=== PATIENT | female | born 1980 | race Caucasian/White ===

== ENCOUNTER 2017-04-28 05:50 | Emergency (ER) | payer OTHER ==
[~2017-04-28] VITALS: Ht 167.6 cm; Wt 86.2 kg
[~2017-04-28 05:50] MED LIST: ALPR1TAB2 PO; IBUP800T99 PO; [UNRECOGNIZED DRUG - CODE] PO; [UNRECOGNIZED DRUG - CODE] PO
[2017-04-28 05:53] VITALS: BP 122/87
--- NOTE | 2017-04-28 06:00 | NUR ---
TO ER BED 5
--- NOTE | 2017-04-28 06:06 | NUR ---
36Y F PRESENT TO ER C/O OF NECK AND BACK PAIN X3 DAYS. PT DENIES ANY INJURY. PAIN IS 8/10 IN SCALE.
--- NOTE | 2017-04-28 07:05 | NUR ---
PT APPEARS TO BE RESTING COMFORTABLY IN BED; RR EVEN/UNLABORED; NO ACUTE DISTRESS NOTED AT THIS TIME; WILL CONTINUE TO MONITOR.
--- NOTE | 2017-04-28 07:35 | NUR ---
Dr. Del Real evaluating patient at bedside.
[2017-04-28] MEDS ORDERED: KETOROLAC 60 MG/2 ML VIAL IM ONE (07:50)
[2017-04-28] MEDS ORDERED: DIAZEPAM PFS 10 MG/2 ML SYR IM ONE (07:50)
--- NOTE | 2017-04-28 08:01 | NUR ---
WARM BLANKET PROVIDED TO PT FOR COMFORT.
--- NOTE | 2017-04-28 08:21 | NUR ---
PT STATES " I FEEL BETTER" AFTER ADMINISTRATION OF PAIN MEDICATION ORDERED BY PER MD DR. YU; PT STATES PAIN /10 FROM 09/06 AT THIS TIME; ASKED PT IF PT WOULD LIKE MORE PAIN MEDICATION, STATES " I'M FINE. I WILL JUST TAKE THE MEDICATION HE IS GOING TO PRESCRIBE TO ME"; PT DENIES NEED FOR ADDITIONAL PAIN MEDICATION AT THIS TIME. ER MD DR. YU NOTIFIED. NO ACUTE DISTRESS NOTED AT THIS TIME. WILL CONTINUE TO MONITOR.
[2017-04-28 08:29] VITALS: BP 121/84
--- NOTE | 2017-04-28 08:29 | NUR ---
Patient discharged with v/s stable. Written and verbal after care instructions given and explained. Patient alert, oriented and verbalized understanding of instructions. Ambulatory with to car. All questions addressed prior to discharge. ID band removed. Patient advised to follow up with PMD. Rx of NORCO 5MG-325MG TAB, MOTRIN 800M TAB & VALIUM 5MG TAB given. Patient educated on indication of medication including possible reaction and side effects. Opportunity to ask questions provided and answered.
== END 2017-04-28 08:29 | disposition home or self-care (01) ==
LOC: MED 05:50
DX: M54.9 Dorsalgia, unspecified (principal); F41.9 Anxiety disorder, unspecified; Z90.89 Acquired absence of other organs
CPT/HCPCS: 81002; 81025; 96372; 99284; J1885; J3360

== ENCOUNTER 2017-07-29 06:46 | Emergency (ER) | payer OTHER ==
[~2017-07-29] VITALS: Ht 167.6 cm; Wt 91.6 kg
[2017-07-29 06:51] VITALS: BP 110/77
--- NOTE | 2017-07-29 07:56 | NUR ---
36 Y/O F W/C/O ABD VAGINAL BLEEDING X TODAY. MED HX MIGRAINE HEADACHES, AND DM TYPE 2, DOESNT RECALL NAME OF MEDS. DENIES N/V/D; SKIN IS PINK/WARM/DRY; AAOX4 WITH EVEN AND STEADY GAIT; LUNGS CLEAR BL; HR EVEN AND REGULAR; PT DENIES ANY FEVER, CP, SOB, OR COUGH AT THIS TIME; PATIENT STATES PAIN OF 7/10 AT THIS TIME; VSS; PATIENT POSITIONED FOR COMFORT; HOB ELEVATED; BEDRAILS UP X2; BED DOWN. ER MADE AWARE OF PT STATUS. Addendum: 07/29/17 at 0917 by [email or web address] PT TS DON'T WANT PAIN MED AT THIS TIME
--- NOTE | 2017-07-29 08:00 | NUR ---
Patient being evaluated by DR MATTA at bedside.
[2017-07-29 08:25] LABS: BASOPHILS # (AUTO) 0.3 K/uL (0.00-0.22); BASOPHILS % (AUTO) 4.4 % (0.0-2.0); EOSINOPHILS # (AUTO) 0.2 K/uL (0-0.4); EOSINOPHILS % (AUTO) 2.6 % (0.0-4.0); HEMATOCRIT 39.3 % (36-48); HEMOGLOBIN 12.7 g/dL (12.0-16.0); LYMPHOCYTES # (AUTO) 1.9 K/uL (2.5-16.5); LYMPHOCYTES % (AUTO) 31.2 % (20.5-51.1); MEAN CORPUSCULAR HEMOGLOBIN 25 pg (27-31); MEAN CORPUSCULAR HGB CONC 32 g/dL (33-37); MEAN CORPUSCULAR VOLUME 76 fL (80-94); MONOCYTES # (AUTO) 0.4 K/uL (0.8-1.0); MONOCYTES % (AUTO) 6.9 % (1.7-9.3); NEUTROPHILS # (AUTO) 3.3 K/uL (1.8-7.7); NEUTROPHILS % (AUTO) 54.9 % (42.2-75.2); PLATELET COUNT (AUTO) 267 K/uL (140-450); RED BLOOD CELL COUNT(AUTO) 5.15 MIL/uL (4.20-5.40); RED CELL DISTRIBUTION WIDTH 14.1 % (11.6-13.7); WHITE BLOOD COUNT (AUTO) 6.1 K/uL (4.8-10.8)
[2017-07-29 09:04] VITALS: BP 110/77
--- NOTE | 2017-07-29 09:14 | NUR ---
Patient discharged with v/s stable. Written and verbal after care instructions given and explained. Patient alert, oriented and verbalized understanding of instructions. Ambulatory with steady gait. All questions addressed prior to discharge. ID band removed. Patient advised to follow up with PMD. Rx of PROVECA given. Patient educated on indication of medication including possible reaction and side effects. Opportunity to ask questions provided and answered.
== END 2017-07-29 09:14 | disposition home or self-care (01) ==
LOC: MED 06:46
DX: N93.8 Other specified abnormal uterine and vaginal bleeding (principal); R73.03 Prediabetes
CPT/HCPCS: 36415; 81002; 81025; 82948; 85025; 99283

== ENCOUNTER 2018-03-27 19:22 | Emergency (ER) | payer OTHER ==
[~2018-03-27] VITALS: Ht 167.6 cm; Wt 86.2 kg
[~2018-03-27 19:22] MED LIST changes: +IBUP-2218 PO; -IBUP800T99 PO; +PROM6.2555 PO; -[UNRECOGNIZED DRUG - CODE] PO
[2018-03-27 19:29] VITALS: BP 152/75
--- NOTE | 2018-03-27 19:35 | NUR ---
PATIENT TO ER CHAIR A
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
[2018-03-27] MEDS ORDERED: KETOROLAC 60 MG/2 ML VIAL IM ONE (19:55)
--- NOTE | 2018-03-27 20:06 | NUR ---
PT BACK FROM XRAY VIA W/C WITH Xhale AAOX4
[2018-03-27 21:20] VITALS: BP 148/74
--- NOTE | 2018-03-27 21:20 | NUR ---
Patient discharged with v/s stable. Written and verbal after care instructions given and explained. Patient alert, oriented and verbalized understanding of instructions. Ambulatory with steady gait. All questions addressed prior to discharge. ID band removed. Patient advised to follow up with PMD. Rx of FLEXERIL AND TRAMADOL given. Patient educated on indication of medication including possible reaction and side effects. Opportunity to ask questions provided and answered. Addendum: 03/27/18 at 2128 by [employer] PT WAS D/C W/ MOTRIN, NOT TRAMADOL AND FLEXERIL.
== END 2018-03-27 21:20 | disposition home or self-care (01) ==
LOC: MED 19:22
DX: S50.12XA Contusion of left forearm, initial encounter (principal); E11.9 Type 2 diabetes mellitus without complications; W20.8XXA Other cause of strike by thrown, projected or falling object, initial encounter; Y93.89 Activity, other specified; Y92.89 Other specified places as the place of occurrence of the external cause; Y99.8 Other external cause status
CPT/HCPCS: 73090; 81025; 96372; 99284; J1885

== ENCOUNTER 2020-09-03 16:15 | Emergency (ER) | payer OTHER ==
[~2020-09-03] VITALS: Ht 165.1 cm; Wt 87.5 kg
[2020-09-03 16:21] VITALS: BP 128/95
[2020-09-03] MEDS ORDERED: LORazepam 2 MG/ML VIAL IM ONE (16:40)
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
--- NOTE | 2020-09-03 17:47 | NUR ---
DISCHARGE PAPERWORK REVIEWED WITH PT AND ALL QUESTIONS ANSWERED AT THIS TIME. PT STATES RELIEF FROM ANXIETY WELL UNDERSTANDING OF INSTRUCTIONS. PT IS WAITING FOR RIDE.
--- NOTE | 2020-09-03 17:50 | NUR ---
Patient discharged with v/s stable. Written and verbal after care instructions given and explained. Patient alert, oriented and verbalized understanding of instructions. Ambulatory with steady gait. All questions addressed prior to discharge. ID band removed. Patient advised to follow up with PMD. Rx of VISTARIL given. Patient educated on indication of medication including possible reaction and side effects. Opportunity to ask questions provided and answered.
== END 2020-09-03 17:50 | disposition home or self-care (01) ==
LOC: MED 16:15
DX: F41.9 Anxiety disorder, unspecified (principal); R73.03 Prediabetes; Z79.899 Other long term (current) drug therapy; Z90.49 Acquired absence of other specified parts of digestive tract
CPT/HCPCS: 96372; 99283; J2060

== ENCOUNTER 2020-09-16 13:15 | Emergency (ER) | payer OTHER ==
[~2020-09-16] VITALS: Ht 167.6 cm; Wt 84.4 kg
[2020-09-16 13:20] VITALS: BP 136/85
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
--- NOTE | 2020-09-16 13:49 | NUR ---
DR JASSO AT BEDSIDE EVALUATING PT.
--- NOTE | 2020-09-16 14:18 | NUR ---
PT TO XRAY , VIA WHEELCHAIR
--- NOTE | 2020-09-16 14:27 | NUR ---
PT BACK FROM AY VIA WHEELCHAIR.
--- NOTE | 2020-09-16 14:49 | NUR ---
dr vela at bedside reevaluating pt.
[2020-09-16 14:52] VITALS: BP 130/80
--- NOTE | 2020-09-16 14:53 | NUR ---
Patient discharged with v/s stable. Written and verbal after care instructions given and explained regarding muscle sprain. Patient alert, oriented and verbalized understanding of instructions. Ambulatory with steady gait. All questions addressed prior to discharge. ID band removed. Patient advised to follow up with PMD. Rx of motrim given. Patient educated on indication of medication including possible reaction and side effects. Opportunity to ask questions provided and answered.Excuse from work given .
== END 2020-09-16 14:53 | disposition home or self-care (01) ==
LOC: MED 13:15
DX: S16.1XXA Strain of muscle, fascia and tendon at neck level, initial encounter (principal); S93.402A Sprain of unspecified ligament of left ankle, initial encounter; Z79.899 Other long term (current) drug therapy; X58.XXXA Exposure to other specified factors, initial encounter; Y93.89 Activity, other specified; Y92.89 Other specified places as the place of occurrence of the external cause; Y99.8 Other external cause status
CPT/HCPCS: 72040; 73610; 81025; 99284

== ENCOUNTER 2021-02-06 03:50 | Emergency (ER) | payer OTHER ==
[~2021-02-06] VITALS: Ht 162.6 cm; Wt 83.9 kg
[2021-02-06 03:58] VITALS: BP 125/100
--- NOTE | 2021-02-06 04:00 | NUR ---
To ED bed 11
--- NOTE | 2021-02-06 04:04 | NUR ---
Dr. Davidsoned with pt for MSE.
--- NOTE | 2021-02-06 04:04 | NUR ---
see complete assessment.
[2021-02-06] MEDS ORDERED: KETOROLAC 30 MG/ML VIAL IM ONE (04:15)
[2021-02-06 04:25] LABS: APPEARANCE,URINE CLEAR (CLEAR); BILIRUBIN,URINE NEGATIVE (NEGATIVE); BLOOD, URINE NEGATIVE (NEGATIVE); COLOR,URINE YELLOW (YELLOW); LEUKOCYTE ESTERASE ,URINE NEGATIVE (NEGATIVE); NITRITE, URINE NEGATIVE (NEGATIVE); UGLUCOSE 3+ (NEGATIVE)
--- NOTE | 2021-02-06 04:36 | NUR ---
X-Ray at bedside.
--- NOTE | 2021-02-06 04:53 | NUR ---
Reports pain decreased to 5/10 and tolerable. .states does not want any more pain meds.
[2021-02-06 04:54] VITALS: BP 122/87
[2021-02-06] MEDS ORDERED: TOMOMETER 1 DEV DEV MC ONE (05:03)
[2021-02-06] MEDS ORDERED: NAPR-54 PO (05:45)
== END 2021-02-06 05:54 | disposition home or self-care (01) ==
LOC: MED 03:50
DX: M70.72 Other bursitis of hip, left hip (principal); Z90.49 Acquired absence of other specified parts of digestive tract; Z79.899 Other long term (current) drug therapy
CPT/HCPCS: 73502; 81003; 81025; 96372; 99284; J1885

== ENCOUNTER 2021-02-24 09:13 | Emergency (ER) | payer OTHER ==
[~2021-02-24] VITALS: Ht 167.6 cm; Wt 86.2 kg
[~2021-02-24 09:13] MED LIST changes: +NAPR-54 PO
[2021-02-24 09:19] VITALS: BP 121/78
[2021-02-24] MEDS ORDERED: KETOROLAC 60 MG/2 ML VIAL IM ONE (09:25)
--- NOTE | 2021-02-24 09:30 | NUR ---
40 YEAR OLD FEMALE COMPLAINS OF LOWER BACK PAIN X 1 WEEK. PT DENIES TRAUMA, BUT STATES SHE WAS LIFTING SOMETHING HEAVY AND HAD BACK PAIN SINCE. PT AOX4, BREATHING EVEN AND UNLABORED, SKIN WARM AND DRY. BED IN LOWEST POSITION, LOCKED, BED RAIL UPX1. PMH - APPENDECTOMY, TUBALIGATIONA ALLERGIES - DENIES
--- NOTE | 2021-02-24 09:31 | NUR ---
Patient ambulated to bed 9. RN evaluating the patient at bedside.
--- NOTE | 2021-02-24 09:32 | NUR ---
Dr. Del Real is evaluating the patient at bedside.
[2021-02-24] MEDS ORDERED: ACET-8386 PO (10:02)
--- NOTE | 2021-02-24 10:20 | NUR ---
Patient discharged with v/s stable. Written and verbal after care instructions about musculoskeletal pain given and explained. Patient alert, oriented and verbalized understanding of instructions. Ambulatory with steady gait. All questions addressed prior to discharge. ID band removed. Patient advised to follow up with PMD. Rx of norco given. Patient educated on indication of medication including possible reaction and side effects. Opportunity to ask questions provided and answered.
[2021-02-24 10:23] VITALS: BP 121/78
== END 2021-02-24 10:20 | disposition home or self-care (01) ==
LOC: MED 09:13
DX: M54.5 Low back pain (principal); Z79.899 Other long term (current) drug therapy; Z98.890 Other specified postprocedural states; Z90.49 Acquired absence of other specified parts of digestive tract
CPT/HCPCS: 81002; 81025; 96372; 99283; J1885

== ENCOUNTER 2021-07-11 20:37 | Emergency (ER) | payer OTHER ==
[~2021-07-11] VITALS: Ht 167.6 cm; Wt 81.6 kg
[~2021-07-11 20:37] MED LIST changes: +ACET-8386 PO
[2021-07-11 20:40] VITALS: BP 150/90
--- NOTE | 2021-07-11 20:40 | NUR ---
TO BED AMBULATORY
[2021-07-11] MEDS ORDERED: KETOROLAC 60 MG/2 ML VIAL IM ONE (20:45)
--- NOTE | 2021-07-11 20:50 | NUR ---
rad at bedside.
--- NOTE | 2021-07-11 20:55 | NUR ---
40 yo f bib self with c/c of 10/10 L ankle pain s/p fall. pt stated she fell on the stairs. Denies hitting head, -loc. L ankle is visibly swollen, still able to move foot. pedal pulses +/bilat. warm to touch. pt stated movement aggrevates pain and pain reduced when still. pt stated she is able to walk unsteady. pt given a warm blanket. bed locked in lowest position, side rails x1. hx: anxiety rx: unable to remember nka
--- NOTE | 2021-07-11 21:51 | NUR ---
pt is sitting up in bed using phone, in stable condition. all needs met at this time. bed locked in lowest position, side rails x1.
[2021-07-11] MEDS ORDERED: IBUP-1842 PO (22:12)
--- NOTE | 2021-07-11 22:42 | NUR ---
pt is sitting up in bed using phone, in stable condition. all needs met at this time. bed locked in lowest position, side rails x1.
--- NOTE | 2021-07-11 23:02 | NUR ---
ERMD FLAMMIA AT BEDSIDE EXAMINING PT.
[2021-07-11 23:30] VITALS: BP 136/94
== END 2021-07-11 23:30 | disposition home or self-care (01) ==
LOC: MED 20:37
DX: S93.402A Sprain of unspecified ligament of left ankle, initial encounter (principal); Z79.899 Other long term (current) drug therapy; X58.XXXA Exposure to other specified factors, initial encounter; Y93.89 Activity, other specified; Y92.89 Other specified places as the place of occurrence of the external cause; Y99.8 Other external cause status
CPT/HCPCS: 73610; 96372; 99283; J1885

== ENCOUNTER 2021-08-02 11:25 | Emergency (ER) | payer OTHER ==
[~2021-08-02] VITALS: Ht 167.6 cm; Wt 81.7 kg
[~2021-08-02 11:25] MED LIST changes: +IBUP-1842 PO
[2021-08-02 12:09] VITALS: BP 141/92
--- NOTE | 2021-08-02 12:14 | NUR ---
PT IN TENT
--- NOTE | 2021-08-02 12:14 | NUR ---
C/O FEVER, BODY PAIN, N/V X 1 DAY. NO COUGH, NO CP NO SOB
[2021-08-02] MEDS ORDERED: ONDA-24 SL (12:27)
[2021-08-02] MEDS ORDERED: ACET-9800 PO (12:27)
--- NOTE | 2021-08-02 12:30 | NUR ---
COVID SWAB DONE.
[2021-08-02 12:39] VITALS: BP 141/92
--- NOTE | 2021-08-02 12:39 | NUR ---
Patient discharged with v/s stable. Written and verbal after care instructions given and explained. Patient alert, oriented and verbalized understanding of instructions. Ambulatory with steady gait. All questions addressed prior to discharge. ID band removed. Patient advised to follow up with PMD. Rx of TYLENOL & ZOFRAN given. Patient educated on indication of medication including possible reaction and side effects. Opportunity to ask questions provided and answered.
== END 2021-08-02 12:39 | disposition home or self-care (01) ==
LOC: MED 11:25
DX: R50.9 Fever, unspecified (principal); Z20.822 Contact with and (suspected) exposure to COVID-19; R11.2 Nausea with vomiting, unspecified; Z79.899 Other long term (current) drug therapy
CPT/HCPCS: 99283; U0003

== ENCOUNTER 2021-08-03 00:15 | Emergency (ER) | payer OTHER ==
[~2021-08-03] VITALS: Ht 167.6 cm; Wt 81.6 kg
[~2021-08-03 00:15] MED LIST changes: +ACET-9800 PO; +ONDA-24 SL
[2021-08-03 00:30] VITALS: BP 141/90
--- NOTE | 2021-08-03 00:33 | NUR ---
TO LOBBY A/W BED AMBULATORY
[2021-08-03] MEDS ORDERED: ASPIRIN 325 MG TAB PO ONE (00:45)
[2021-08-03] MEDS ORDERED: NITROGLYCERIN 0.4 MG TAB SL ONE (00:45)
[2021-08-03 01:17] LABS: BASOPHILS # (AUTO) 0.1 K/uL (0.00-0.22); EOSINOPHILS # (AUTO) 0.2 K/uL (0-0.4); EOSINOPHILS % (AUTO) 2.7 % (0.0-4.0); LYMPHOCYTES # (AUTO) 3.1 K/uL (2.5-16.5); LYMPHOCYTES % (AUTO) 42.2 % (20.5-51.1); MEAN CORPUSCULAR HEMOGLOBIN 31 pg (27-31); MEAN CORPUSCULAR HGB CONC 35 g/dL (33-37); MEAN CORPUSCULAR VOLUME 88.4 fL (80-94); MONOCYTES # (AUTO) 0.4 K/uL (0.8-1.0); MONOCYTES % (AUTO) 5.7 % (1.7-9.3); NEUTROPHILS # (AUTO) 3.5 K/uL (1.8-7.7); NEUTROPHILS % (AUTO) 48.4 % (42.2-75.2); PLATELET COUNT (AUTO) 229 K/uL (140-450); RED CELL DISTRIBUTION WIDTH 12.7 % (11.6-13.7); WHITE BLOOD COUNT (AUTO) 7.3 K/uL (4.8-10.8)
--- NOTE | 2021-08-03 01:20 | NUR ---
MEDICATED PER ERMDS ORDER, TOLERATED WELL.
[2021-08-03 01:45] LABS: ALBUMIN 3.7 g/dL (3.4-5.0); ANION GAP 7.9 (8-16); CREATININE 0.9 mg/dL (0.6-1.3); POTASSIUM 3.9 mmol/L (3.5-5.1); TOTAL BILIRUBIN 0.5 mg/dL (0.0-1.0)
--- NOTE | 2021-08-03 03:02 | NUR ---
PT ELOPED AT [id number]
== END 2021-08-03 01:45 | disposition left against medical advice (07) ==
LOC: MED 00:15
DX: R07.9 Chest pain, unspecified (principal)
CPT/HCPCS: 36415; 71045; 80053; 84484; 85025; 93005; 99285

== ENCOUNTER 2021-09-06 00:43 | Emergency (ER) | payer OTHER ==
[~2021-09-06] VITALS: Ht 167.6 cm; Wt 81.6 kg
[2021-09-06 01:05] VITALS: BP 120/70
--- NOTE | 2021-09-06 01:05 | NUR ---
TO BED AMBULATORY
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
[2021-09-06] MEDS ORDERED: NAPR-54 PO (03:30)
[2021-09-06 03:37] VITALS: BP 116/64
--- NOTE | 2021-09-06 03:37 | NUR ---
PATIENT CLEARED FOR DISCHARGE. ER MD AT BEDSIDE TO PROVIDE DISCHARGE TEACHING. NO FURTHER QUESTIONS OR CONCERNS. CRUTCHES GIVEN AND EDUCATION ON USAGE PROVIDED/
== END 2021-09-06 03:37 | disposition home or self-care (01) ==
LOC: MED 00:43
DX: S93.401A Sprain of unspecified ligament of right ankle, initial encounter (principal); S83.91XA Sprain of unspecified site of right knee, initial encounter; F41.9 Anxiety disorder, unspecified; Z98.890 Other specified postprocedural states; Z79.899 Other long term (current) drug therapy; W01.0XXA Fall on same level from slipping, tripping and stumbling without subsequent striking against object, initial encounter; Y93.89 Activity, other specified; Y92.89 Other specified places as the place of occurrence of the external cause; Y99.8 Other external cause status
CPT/HCPCS: 73562; 73610; 99284; Q0092

== ENCOUNTER 2023-11-08 22:52 | Emergency (ER) | payer OTHER ==
[~2023-11-08] VITALS: Ht 167.6 cm; Wt 82.6 kg
[~2023-11-08 22:52] MED LIST changes: -ACET-8386 PO; +ACET-8905 PO; +ONDA-188 SL; -ONDA-24 SL; -PROM6.2555 PO; +PROM6.2591 PO; +[UNRECOGNIZED DRUG - CODE] PO; -[UNRECOGNIZED DRUG - CODE] PO
[2023-11-08 23:06] VITALS: BP 112/82; PULSE 108; RESP 20; TEMP 97.4; O2SAT 99
[2023-11-08 23:40] VITALS: O2SAT 97
[2023-11-09] MEDS ORDERED: KETOROLAC 30 MG/ML VIAL IM ONE (00:10)
[2023-11-09] MEDS ORDERED: ACETAMINOPHEN EXTRA STRENGTH 500 MG TAB PO ONE (00:10)
[2023-11-09 00:47] LABS: BASOPHILS # (AUTO) 0.1 K/uL (0.00-0.22); BASOPHILS % (AUTO) 0.9 % (0.0-2.0); EOSINOPHILS # (AUTO) 0.1 K/uL (0-0.4); EOSINOPHILS % (AUTO) 1.9 % (0.0-4.0); LYMPHOCYTES # (AUTO) 3.3 K/uL (2.5-16.5); LYMPHOCYTES % (AUTO) 41.2 % (20.5-51.1); MEAN CORPUSCULAR HEMOGLOBIN 30 pg (27-31); MEAN CORPUSCULAR HGB CONC 35 g/dL (33-37); MEAN CORPUSCULAR VOLUME 87.2 fL (80-94); MONOCYTES # (AUTO) 0.5 K/uL (0.8-1.0); MONOCYTES % (AUTO) 6.2 % (1.7-9.3); NEUTROPHILS % (AUTO) 49.8 % (42.2-75.2); PLATELET COUNT (AUTO) 219 K/uL (140-450); RED BLOOD CELL COUNT(AUTO) 5.28 MIL/uL (4.20-5.40); RED CELL DISTRIBUTION WIDTH 13.3 % (11.6-13.7)
[2023-11-09 01:20] LABS: D-DIMER < 100 ng/ml (0-400)
[2023-11-09 01:27] LABS: ANION GAP 8.8 (8-16); CALCIUM 8.7 mg/dL (8.5-10.1); CARBON DIOXIDE 30.9 mmol/L (21-32); CREATININE 0.7 mg/dL (0.6-1.3); POTASSIUM 3.7 mmol/L (3.5-5.1)
[2023-11-09 01:33] LABS: INR 0.95 (0.8-1.2); PARTIAL THROMBOPLASTIN TIME 25.9 secs (22-35.6)
== END 2023-11-09 02:03 | disposition home or self-care (01) ==
LOC: MED 22:52
DX: J20.9 Acute bronchitis, unspecified (principal); E11.65 Type 2 diabetes mellitus with hyperglycemia; Z79.4 Long term (current) use of insulin; Z79.899 Other long term (current) drug therapy
CPT/HCPCS: 36415; 71045; 80048; 83880; 84484; 85025; 85379; 85610; 85730; 93005; 96372; 99285; J1885; Q0092

== ENCOUNTER 2024-05-26 07:11 | Emergency (ER) | payer OTHER ==
[~2024-05-26] VITALS: Ht 167.6 cm; Wt 86.2 kg
[~2024-05-26 07:11] MED LIST changes: +NAPR-337 PO; -NAPR-54 PO
[2024-05-26 07:23] VITALS: BP 111/83; PULSE 98; RESP 18; TEMP 96.9; O2SAT 98
[2024-05-26] MEDS: ONDANSETRON 4 MG ODT PO ONE (07:59)
[2024-05-26] MEDS: ACETAMINOPHEN 325 MG TAB PO ONE (07:59)
[2024-05-26 08:14] LABS: BASOPHILS # (AUTO) 0.1 K/uL (0.00-0.22); BASOPHILS % (AUTO) 0.9 % (0.0-2.0); EOSINOPHILS # (AUTO) 0.1 K/uL (0-0.4); EOSINOPHILS % (AUTO) 2.1 % (0.0-4.0); HEMATOCRIT 42.4 % (36-48); HEMOGLOBIN 14.9 g/dL (12.0-16.0); LYMPHOCYTES # (AUTO) 2.4 K/uL (2.5-16.5); MEAN CORPUSCULAR HEMOGLOBIN 31 pg (27-31); MEAN CORPUSCULAR HGB CONC 35 g/dL (33-37); MEAN CORPUSCULAR VOLUME 86.6 fL (80-94); MONOCYTES # (AUTO) 0.4 K/uL (0.8-1.0); MONOCYTES % (AUTO) 5.5 % (1.7-9.3); NEUTROPHILS # (AUTO) 3.7 K/uL (1.8-7.7); NEUTROPHILS % (AUTO) 55.5 % (42.2-75.2); PLATELET COUNT (AUTO) 200 K/uL (140-450); RED CELL DISTRIBUTION WIDTH 13.1 % (11.6-13.7); WHITE BLOOD COUNT (AUTO) 6.6 K/uL (4.8-10.8)
[2024-05-26 08:28] LABS: ANION GAP 14.1 (8-16); CALCIUM 8.5 mg/dL (8.5-10.1); CARBON DIOXIDE 27.7 mmol/L (21-32); CREATININE 0.7 mg/dL (0.6-1.3); POTASSIUM 3.8 mmol/L (3.5-5.1)
[2024-05-26 08:39] LABS: D-DIMER < 100 ng/ml (0-400)
[2024-05-26 09:08] LABS: INR 0.94 (0.8-1.2); PARTIAL THROMBOPLASTIN TIME 27.1 secs (22-35.6); PROTHROMBIN TIME 9.9 secs (10.8-13.4)
[2024-05-26] MEDS ORDERED: ONDA-188 SL (09:16)
[2024-05-26 09:29] VITALS: BP 111/78; PULSE 85; RESP 16; TEMP 98; O2SAT 97
== END 2024-05-26 09:28 | disposition home or self-care (01) ==
LOC: MED 07:11
DX: R07.89 Other chest pain (principal); F43.9 Reaction to severe stress, unspecified; R73.9 Hyperglycemia, unspecified; R11.2 Nausea with vomiting, unspecified; Z79.899 Other long term (current) drug therapy
CPT/HCPCS: 36415; 71045; 80048; 83880; 84484; 85025; 85379; 85610; 85730; 93005; 99285; Q0162; 99284

== ENCOUNTER 2024-09-03 04:15 | Emergency (ER) | payer OTHER ==
[~2024-09-03] VITALS: Ht 106.7 cm; Wt 83.9 kg
[2024-09-03 04:20] VITALS: BP 127/85; PULSE 96; RESP 18; TEMP 97.7; O2SAT 97
[2024-09-03] MEDS ORDERED: IBUP-1842 PO (04:45)
[2024-09-03] MEDS ORDERED: ACET-9800 PO (04:46)
[2024-09-03] MEDS ORDERED: AMOX1TAB8 PO (04:46)
[2024-09-03] MEDS ORDERED: BENZ-300 PO (04:46)
[2024-09-03 04:52] VITALS: BP 127/85; PULSE 96; RESP 18; TEMP 97.7; O2SAT 97
[2024-09-04] MEDS ORDERED: METF-346 PO (00:54)
== END 2024-09-03 04:52 | disposition home or self-care (01) ==
LOC: MED 04:15
DX: J06.9 Acute upper respiratory infection, unspecified (principal); E11.9 Type 2 diabetes mellitus without complications; Z79.899 Other long term (current) drug therapy
CPT/HCPCS: 99283

== ENCOUNTER 2024-09-03 21:17 | Emergency (ER) | payer OTHER ==
[~2024-09-03] VITALS: Ht 167.6 cm; Wt 81.6 kg
[~2024-09-03 21:17] MED LIST changes: +AMOX1TAB8 PO; +BENZ-300 PO
[2024-09-03 21:44] VITALS: BP 101/80; PULSE 109; RESP 18; TEMP 98.5; O2SAT 98
[2024-09-03 22:39] LABS: APPEARANCE,URINE CLEAR (CLEAR); BILIRUBIN,URINE 1+ (NEGATIVE); BLOOD, URINE NEGATIVE (NEGATIVE); COLOR,URINE YELLOW (YELLOW); LEUKOCYTE ESTERASE ,URINE NEGATIVE (NEGATIVE); NITRITE, URINE NEGATIVE (NEGATIVE); PROTEIN,URINE NEGATIVE (NEGATIVE); UGLUCOSE 3+ (NEGATIVE); UROBILINOGEN,URINE 0.2 EU/dL (0.2 - 1)
[2024-09-03 22:40] LABS: ICTOTEST POSITIVE (NEGATIVE)
[2024-09-03] MEDS: NACL 0.9% 1,000 ML IV ONE (23:17)
[2024-09-03 23:20] LABS: BASOPHILS % (AUTO) 0.4 % (0.0-2.0); EOSINOPHILS % (AUTO) 0.7 % (0.0-4.0); HEMATOCRIT 45.5 % (36-48); HEMOGLOBIN 16.2 g/dL (12.0-16.0); LYMPHOCYTES # (AUTO) 1.2 K/uL (2.5-16.5); LYMPHOCYTES % (AUTO) 18.8 % (20.5-51.1); MEAN CORPUSCULAR HEMOGLOBIN 31 pg (27-31); MEAN CORPUSCULAR HGB CONC 36 g/dL (33-37); MEAN CORPUSCULAR VOLUME 87.5 fL (80-94); MONOCYTES # (AUTO) 0.3 K/uL (0.8-1.0); MONOCYTES % (AUTO) 4.6 % (1.7-9.3); NEUTROPHILS % (AUTO) 75.5 % (42.2-75.2); PLATELET COUNT (AUTO) 194 K/uL (140-450); RED BLOOD CELL COUNT(AUTO) 5.21 MIL/uL (4.20-5.40); RED CELL DISTRIBUTION WIDTH 12.9 % (11.6-13.7); WHITE BLOOD COUNT (AUTO) 6.6 K/uL (4.8-10.8)
[2024-09-03 23:32] LABS: CALCIUM 9.3 mg/dL (8.5-10.1); CARBON DIOXIDE 30.7 mmol/L (21-32); CREATININE 0.8 mg/dL (0.6-1.3); POTASSIUM 3.7 mmol/L (3.5-5.1)
[2024-09-03] MEDS: INSULIN REGULAR, HUMAN 100 UNIT/ML VIAL IVP ONE (23:32)
[2024-09-03 23:38] LABS: ALBUMIN 3.6 g/dL (3.4-5.0); BILIRUBIN,DIRECT 0.3 mg/dL (0.0-0.3); TOTAL BILIRUBIN 1.4 mg/dL (0.0-1.0); TOTAL PROTEIN, SERUM 7.6 g/dL (6.4-8.2)
[2024-09-04] MEDS ORDERED: METF-346 PO (00:54)
== END 2024-09-04 01:00 | disposition home or self-care (01) ==
LOC: MED 21:17
DX: E11.9 Type 2 diabetes mellitus without complications (principal); R10.30 Lower abdominal pain, unspecified; R11.2 Nausea with vomiting, unspecified; R50.9 Fever, unspecified; Z79.84 Long term (current) use of oral hypoglycemic drugs; Z79.899 Other long term (current) drug therapy
CPT/HCPCS: 36415; 80048; 80076; 81003; 82948; 85025; 96361; 96374; 99283; J1815; J7030